=== PATIENT | male | born 1970 | race Two or more races ===

== ENCOUNTER → 2024-12-17 | Outpatient (CLI) | payer MEDICAID, SELFPAY | END | disposition home or self-care (01) | PROVIDERS: PCP Physician Assistant; Referring Provider Physician Assistant; Visit Provider Physician Assistant | DX: N40.0 Benign prostatic hyperplasia without lower urinary tract symptoms (principal) ==

== ENCOUNTER 2025-05-13 20:55 | Emergency (ER) | payer MEDICAID, SELFPAY ==
[2025-05-13 20:57] VITALS: BMI 31.2
--- NOTE | 2025-05-13 20:59 | EKG_ITS ---
[facility] Test Date: 2025-05-13 Pat Name: SVITLANA POTTS Department: Room: - Gender: Male [employer] Super[employer]: : 1970 Requested By: ED Temporary Provider Order Number: [id number] Reading MD: ED Temporary Provider Measurements Intervals [place] Rate: 57 P: 56 [place]: 170 QRS: 60 QRSD: 96 T: 34 QT: 407 QTc: 399 Interpretive Statements SINUS BRADYCARDIA No previous ECG available for comparison /store/S0/[id number]/[id number].pdf
[2025-05-13 21:25] VITALS: BP 138/80; PULSE 60; RESP 20; TEMP 36.6; O2SAT 96
--- NOTE | 2025-05-13 21:45 | XR_ITS ---
Examination: AP chest single view TECHNIQUE: AP upright chest single view Dated March 13, 2025 2153 hours INDICATIONS: Dizziness today. FINDINGS: Mild prominence of ventricle Mild vascular congestion. No lobar pneumonia or pulmonary edema Prominent osteopenia IMPRESSION: Mild vascular congestion
--- NOTE | 2025-05-13 21:45 | XR_ITS ---
Examination: CT brain head without contrast. 2-D sagittal coronal reconstructions Date and time of exam:May 13, 2025 10:30 PM INDICATIONS: Dizziness vomiting horizontal nystagmus this region CTDI: vol (mGy):54 DLP: (mGycm):1100 Technique: Multiple CT axial sections of the brain have been obtained, 5 mm slice thickness. Contrast has not been administered. 2-D sagittal, coronal reconstructions have been obtained Low dose protocols were performed. One or more of the following dose reduction techniques were used; automated exposure control, adjustment of the mA and/or KV according to patient size, use of iterative reconstruction technique. Findings: No significant ventricular enlargement. Intra-axial or extra-axial hemorrhage density is not seen. No mass effect or midline shift Basal cisterns are not remarkable. Fourth ventricle is midline. Cranial vault intact. Prominent ethmoid sphenoid sinusitis Impression: Negative for acute hemorrhage, mass effect or midline shift If symptoms persist, consider brain MRI follow-up
--- NOTE | 2025-05-13 21:48 | PD.EDRME ---
Rapid Medical Screening Exam RME Arrival date/time: 05/13/25 20:55 55M with history of seasonal allergies presents to ED with 1 week of ear fullness. Several hours ago, patient started experiencing dizziness and having N/V. Patient and deny AMS, seizures, vision changes, slurred speech, and gait changes. Patient states something similar happened about 2 years ago and meclizine resolved the issue. Patient states this feels similar. Chief Complaint: Dizziness Time Seen by Provider: 05/14/25 03:41 Vital signs: Vital Signs Temperature 97.8 F 05/13/25 21:25 Pulse Rate 60 05/13/25 21:25 Respiratory Rate 20 05/13/25 21:25 Blood Pressure 138/80 H 05/13/25 21:25 Pulse Oximetry (%) 96 05/13/25 21:25 Oxygen Delivery Method Room Air 05/13/25 21:25
[2025-05-13 22:08] LABS: Basophils # (Auto) 0.1 Thou/mm3 (0.0-0.2); Basophils % (Auto) 1 % (0-2.5); Eosinophils # (Auto) 0.2 Thou/mm3 (0.0-0.5); Eosinophils % (Auto) 3 % (0-10); Hematocrit 41.5 % (41.0-53.0); Hemoglobin 15.4 g/dL (13.5-16.0); Immature Granulocytes % (Auto) 1 % (0-0); Immature Granulocytes Auto 0.04 Thou/mm3 (0.00-0.00); Lymphocytes # (Auto) 1.8 Thou/mm3 (1.0-4.8); Lymphocytes % (Auto) 22 % (10-50); Mean Corpuscular HGB Conc 37.1 g/dl (31.0-37.0); Mean Corpuscular Hemoglobin 30.1 pg (25.0-35.0); Mean Corpuscular Volume 81 fL (80-100); Monocytes # (Auto) 0.4 Thou/mm3 (0.0-0.8); Monocytes % (Auto) 5 % (0-12); Neutrophils # (Auto) 5.7 Thou/mm3 (1.8-7.7); Neutrophils % (Auto) 70 % (37-80); Nucleated Red Blood Cell % 0 /100 WBC (0); Platelet Count 163 Thou/mm3 (140-440); RDW Standard Deviation 36.2 fL (35.1-43.9); Red Blood Count 5.12 Miln/mm3 (4.50-5.90); White Blood Count 8.2 Thou/mm3 (3.8-10.6)
[2025-05-13 22:26] LABS: B-Type Natriuretic Peptide < 20 pg/mL (0-100)
[2025-05-13 22:27] LABS: Alanine Aminotransferase 31 U/L (10-49); Albumin, Serum 4.8 gm/dL (3.5-5.0); Albumin/Globulin Ratio 2.4 (1.2-2.2); Alkaline Phosphatase 86 U/L (46-116); Anion Gap 10 (7-16); Aspartate Amino Transferase 23 U/L (0-34); BUN/Creatinine Ratio 17 Ratio (12-20); Bilirubin,Total 0.6 mg/dL (0.3-1.2); Blood Urea Nitrogen 15 mg/dL (9-23); Calcium 9.9 mg/dL (8.3-10.6); Calcium (Corrected) 9.9 mg/dL (8.5-10.1); Carbon Dioxide 24.5 mMol/L (20.0-31.0); Chloride 107 mMol/L (98-107); Creatinine (Component) 0.9 mg/dL (0.6-1.3); Estimated Creatinine Clearance 111.3 mL/min (>60); Glucose 142 mg/dL (74-106); Magnesium 2.3 mg/dL (1.6-2.6); Osmolality,Calculated 284 (275-295); Potassium 3.8 mMol/L (3.4-5.1); Sodium 141 mMol/L (136-145); Total Protein 6.8 gm/dL (5.7-8.2); Troponin I < 0.002 ng/mL (0.0-0.045); eGFR > 60 See Note
[2025-05-13 22:28] LABS: INR 1.1 (0.9-1.3); Prothrombin Time 12.4 Seconds (9.0-12.2)
[2025-05-13 22:47] LABS: Collection Type, Urine Clean Catch; Squamous Epithelial Cell,Urine 0 /hpf (0-5)
[2025-05-13] MEDS: MECLIZINE HCL 25 MG TABLET 50 MG PO (22:48)
[2025-05-13 22:58] LABS: Amphetamine/Methamp Scrn,U Negative (Negative); Barbiturate Screen,Urine Negative (Negative); Benzodiazepines Screen,Urine Negative (Negative); Benzoylecgonine Screen, Ur Negative (Negative); Fentanyl Screen,Urine Negative (Negative); Opiate Screen,Urine Negative (Negative); THC Screen,Urine Negative (Negative)
[2025-05-13 23:01] LABS: Bilirubin,Urine Negative (Negative); Blood,Urine Negative (Negative); Clarity,Urine Clear (Clear/Hazy); Color,Urine Yellow (Lt Yel-Yel); Glucose, Urine Negative (Negative); Ketones,Urine Negative (Negative); Leukocyte Esterase,Urine Negative (Negative); Nitrite,Urine Negative (Negative); Protein,Urine Trace (Neg - Trace); RBC,Urine 1 /hpf (0-3); Urobilinogen,Urine Negative mg/dL (0.0-1.0); WBC,Urine 1 /hpf (0-5)
[2025-05-14 03:40] VITALS: BP 149/81; PULSE 74; RESP 16; TEMP 36.9; O2SAT 98
--- NOTE | 2025-05-14 03:42 | EDNOTE_ITS ---
<Statement entered by Keiko Archer MD - 05/16/25 18:56> As co-signing physician, I was present and available for consult prn. I concur with the plan and care as documented by the midlevel provider. ED Dizzyness RME/HPI General Chief Complaint: Dizziness Stated Complaint: DIZZY, VOMITING X1WEEK Time Seen by Provider: 05/14/25 03:41 Arrival date/time: 05/13/25 20:55 55M with history of seasonal allergies presents to ED with 1 week of ear fullness. Several hours ago, patient started experiencing dizziness and having N/V. Patient and deny AMS, seizures, vision changes, slurred speech, and gait changes. Patient states something similar happened about 2 years ago and meclizine resolved the issue. Patient states this feels similar. Limitations: no limitations RME / HPI RME / HPI Narrative: 05/13/25 20:55 55M with history of seasonal allergies presents to ED with 1 week of ear fullness. Several hours ago, patient started experiencing dizziness and having N/V. Patient and deny AMS, seizures, vision changes, slurred speech, and gait changes. Patient states something similar happened about 2 years ago and meclizine resolved the issue. Patient states this feels similar. Related Data Previous Rx's ?Medication ?Instructions ?Recorded meclizine 25 mg tablet 25 mg PO BID PRN dizziness # 30 tabs 05/21/22 meclizine 25 mg tablet 25 mg PO BID PRN dizziness # 14 tabs 05/14/25 Allergies Allergy/AdvReac Type Severity Reaction Status Date / Time Penicillins Allergy Verified 05/21/22 05:54 Review of Systems Review of Systems Systems Reviewed: All systems reviewed, normal except as documented Constitutional Constitutional: Reports system reviewed and no additional complaints, except as documented, Denies fever(s) and Denies headache(s) ENT Ears, Nose, Mouth, and Throat: Reports as per HPI, Denies disequilibrium, Denies headache(s) and Reports vertigo Cardiovascular Cardiovascular: Reports system reviewed and no additional complaints, except as documented, Denies chest pain and Denies dyspnea Respiratory Respiratory: Reports system reviewed and no additional complaints, except as documented, Denies cough and Denies dyspnea Gastrointestinal Gastrointestinal: Reports system reviewed and no additional complaints, except as documented, Reports as per HPI, Denies abdominal pain, Reports nausea and Reports vomiting Neurologic Neurologic: Reports system reviewed and no additional complaints, except as documented, Denies confusion, Denies disequilibrium, Denies headache(s) and R eports vertigo Psychiatric Psychiatric: Denies confusion Past Medical History Past Medical History NEUROLOGIC: Negative Neurological Disorders CARDIAC: Negative Cardiac Disorders or Congestive Heart Failure RESPIRATORY: Negative Chronic Obstructive Pulmonary Disease (COPD) GASTROINTESTINAL: Negative Gastrointestinal Disorders GENITOURINARY: Negative Genitourinary Disorders or Renal Disease ENDOCRINE: Negative Endocrine Disorders, Diabetes Mellitus Type 1 or Diabetes Mellitus Type 2 HEMATOLOGIC: Negative Blood Disorders Family History FAMILY HISTORY: Negative Family Cardiac Disorders Social History SMOKING STATUS: Never smoker SUBSTANCE USE: does not use ED Exam General Limitations: Present no limitations General appearance: Present alert and in no apparent distress Head Head exam: Present atraumatic Eye Eye exam: Present PERRL, EOMI and nystagmus (horizontal; relieved with meds) ENT ENT exam: Present normal exam, normal oropharynx and mucous membranes moist Neck Neck exam: Present normal inspection, full ROM and trachea midline Chest Chest inspection: Present normal inspection and symmetric chest wall rise Respiratory Respiratory exam: Present normal lung sounds bilaterally Cardiovascular Cardiovascular exam: Present regular rate, normal rhythm and normal heart sounds Abdominal Exam Abdominal exam: Present soft and normal bowel sounds Extremities Exam Extremities exam: Present normal inspection and full ROM Back Exam Back exam: Present normal inspection and full ROM Neurological Exam Neurological exam: Present alert, oriented X3 and CN II-XII intact Psychiatric Psychiatric exam: Present normal affect and normal mood Skin Skin exam: Present warm, dry, intact and normal color Course Quality Measures none Orders Category Date Time Status EKG (ED ONLY) *Do not use* NOW Care 05/13/25 20:[address] head/brain wo con Stat Exams 05/13/25 21:45 Completed EKG (ED Only) Stat Exams 05/13/25 20:59 Draft XR chest 1V portable Stat Exams 05/13/25 21:45 Completed B-Type Natriuretic Peptide Stat Lab 05/13/25 21:59 Completed CBC Stat Lab 05/13/25 21:59 Completed Comprehensive Metabolic Panel Stat Lab 05/13/25 21:59 Completed Drug Screen,Urine Stat Lab 05/13/25 22:30 Completed Magnesium Stat Lab 05/13/25 21:59 Completed Partial Thromboplastin Time Stat Lab 05/13/25 21:59 Completed Prothrombin Time with INR Stat Lab 05/13/25 21:59 Completed Troponin I Stat Lab 05/13/25 21:59 Completed Urinalysis Stat Lab 05/13/25 22:30 Completed Meclizine HCl [Antivert] Med 05/13/25 21:45 Discontinued 50 mg PO X1 ONE Ondansetron Inj [Zofran Inj] Med 05/13/25 21:45 Discontinued 4 mg IM X1 ONE Vital Signs Vital signs: Vital Signs Temperature 97.8 F 05/13/25 21:25 Pulse Rate 60 05/13/25 21:25 Respiratory Rate 20 05/13/25 21:25 Blood Pressure 138/80 H 05/13/25 21:25 Pulse Oximetry (%) 96 05/13/25 21:25 Oxygen Delivery Method Room Air 05/13/25 21:25 O2 at 96% on RA and WNLs Dizziness MDM Narrative MDM Narrative:: 55M with history of seasonal allergies presents to ED with 1 week of ear fullness. Several hours ago, patient started experiencing dizziness and having N/V. Patient and deny AMS, seizures, vision changes, slurred speech, and gait changes. Patient states something similar happened about 2 years ago and meclizine resolved the issue. Patient states this feels similar. Physical exam reveals normal pupil response and EOM. There is a horizontal nystagmus. Otherwise CN II-XII grossly intact. Speech normal. Gait normal. Strength equal bilaterally. Normal WOB. Patient is afebrile, alert, but actively having N/V. EKG is sinus aman of 57. CXR normal. CT head normal. Trop normal. BNP normal. CMP unremarkable. Alcohol/tox screen neg. Meclizine relieved symptoms. Upon reassessment and after 7 hours OBS, repeat neuro exam is normal with horizontal nystagmus no longer present. CN II-XII grossly intact. Gait normal. Speech normal. Strength equal bilaterally. [employer] given. Patient data External records reviewed:: [facility] previous records Clinical information provided by:: patient Social determinants that could affect healthcare access:: none Patient has the following chronic illnesses:: seasonal allergies How is presenting disease/condition affected by chronic disease/condition?: exacerbated by Evaluation data The following diagnostics were reviewed and interpreted by me:: lab results, radiology exam(s) and EKG tracing(s) Lab and/or radiology exams considered but not ordered:: ordered Interpretation Summary: above Medications / Prescriptions Medications or Prescriptions considered but not ordered:: ordered Medication administrations:: Medication Administration History Discontinued Medications Meclizine HCl (Meclizine Hcl 25 Mg Tablet) 50 mg PO X1 ONE Stop: 05/13/25 21:46 Last Admin: 05/13/25 22:48 Dose: 50 mg Documented By: GILBERT Ondansetron HCl (Ondansetron Inj 2 Mg/Ml Inj 2 Ml) 4 mg IM X1 ONE; Protocol Stop: 05/13/25 21:46 Last Admin: 05/13/25 22:51 Dose: Not Given Documented By: GILBERT Non-Admin Reason: Other, see note above Consultations Consultation(s) initiated? (list below): No Diagnosis Dizziness Differential Diagnosis: adverse reaction to drug, benign paroxysmal positional vertigo, orthostatic hypotension, vertebral basilar insufficiency, cerebrovascular accident, acute vestibular neuronitis, transient cerebral ischem ia and other (dizziness) Most likely diagnosis given after review of the tests above:: dizziness Admission Indicated Admission indicated?: not indicated Admission Request Was there a request for admission?: No Disposition Plan Disposition Plan: Discharge Discharge Attestation Discharge Attestation: The patient and all family members were given an opportunity to ask questions and understood the discharge instructions. Discharge instructions specifically effects, indications for sooner follow up or return to the emergency department, and the expected course of current diagnosis. Patient condition: Stable Discharge Plan Plan Patient Disposition: HOME (Self Care) Discharge Disposition comment: Stable Prescriptions/Referrals Prescriptions/Med Rec: New meclizine 25 mg tablet 25 mg PO BID PRN (Reason: dizziness) Qty: 14 0RF No Action meclizine 25 mg tablet 25 mg PO BID PRN (Reason: dizziness) Qty: 30 0RF Referrals: No Primary/Family,Physician [Primary Care Provider] - In 1 week Problem List Clinical Impression: Dizziness Patient/Caregiver Discharge Instructions Education Materials: Vertigo Medicine Tx, Vertigo Staying Safe, ED Dizziness, Uncertain Cause Additional Instructions: Please follow-up with PCP within 24-48 hours and return immediately if symptoms worsen. Print Language: Portuguese Stand Alone Forms: Patient Portal Info Letter PA/WALDO Supervising Physician BRIEN/WALDO Supervising Physician: Dr. Archer
== END 2025-05-14 03:54 | disposition home or self-care (01) ==
PROVIDERS: Physician Assistant; Emergency Provider Emergency Medicine
DX: R42 Dizziness and giddiness (principal); R00.1 Bradycardia, unspecified; R11.2 Nausea with vomiting, unspecified
CPT/HCPCS: 36415; 70450; 71045; 80053; 80307; 81001; 83735; 83880; 84484; 85025; 85610; 85730; 93005; 96372; 99284; A9270